=== PATIENT | female | born 1995 | race Caucasian/White ===

== ENCOUNTER 2023-05-29 09:30 | Outpatient (RCR) | payer OTHER, SELFPAY | END 2023-08-15 09:29 | disposition home or self-care (01) | PROVIDERS: Visit Provider Physician Assistant Surgical | DX: S93.402A Sprain of unspecified ligament of left ankle, initial encounter (principal); M25.572 Pain in left ankle and joints of left foot; M25.672 Stiffness of left ankle, not elsewhere classified; Z51.89 Encounter for other specified aftercare | CPT/HCPCS: 97110; 97112; 97116; 97161 ==